=== PATIENT | male | born 1955 | race Caucasian/White ===

== ENCOUNTER 2016-02-24 11:41 | Emergency (ER) | payer SELFPAY ==
[~2016-02-24] VITALS: Ht 167.6 cm; Wt 79.4 kg
--- NOTE | 2016-02-24 12:38 | PHYS DOC ---
Past Medical History Past Medical History: No Pertinent History Past Surgical History: No Surgical History Alcohol Use: Heavy Additional Information: "I HAVE 5-6 BEERS AND A COUPLE OF SHOTS A DAY" Drug Use: Marijuana Adult General Chief Complaint Chief Complaint: ABSCESS HPI HPI Patient is a 60 year old male who presents with concern for abscess on his buttock. Patient reports pain in his left superior buttock that began Thursday without provocation. He had a fever on night, but not since then. No drainage from site, but does report significant point tenderness. No prior similar episodes. No other acute complaints. He has tried an ice pack, a hot pack, and muscle rub ointment on the site with insufficient relief. Review of Systems Review of Systems Constitutional: Denies fever or chills Eyes: Denies change in visual acuity or eye pain HENT: Denies nasal congestion or sore throat Respiratory: Denies cough or shortness of breath Cardiovascular: Denies chest pain GI: Denies abdominal pain, nausea, vomiting, bloody stools or diarrhea : Denies dysuria or hematuria Musculoskeletal: Pain, point TTP superior L buttock Integument: Denies rash or skin lesions Neurologic: Denies headache, focal weakness or sensory changes Current Medications Current Medications Current Medications Medications (Trade) Dose Ordered Sig/[place] Start Time Stop Time Status Last Admin Dose Admin Iohexol (Omnipaque 300 Mg/ml) 75 ml 1X ONCE 02/24/16 13:15 02/24/16 13:16 DC Allergies Allergies Allergies Coded Allergies Type Severity Reaction Last Updated Verified naproxen Allergy Unknown 02/24/16 Yes Physical Exam Physical Exam Constitutional: Well developed, well nourished, no acute distress, non-toxic appearance HENT: Normocephalic, atraumatic, bilateral external ears normal Eyes: EOMI, conjunctiva normal, no discharge Neck: Normal range of motion, no stridor Cardiovascular: Heart rate normal, regular rhythm, no murmur Lungs & Thorax: Bilateral breath sounds clear to auscultation Abdomen: Bowel sounds normal, soft, non-distended, no TTP Rectal: TTP at superior L buttock at top of gluteal cleft; no erythema, warmth to touch, or other skin abnormality noted. No TTP or abnormality around rectum. Skin: Warm, dry, no erythema, no rash Neurologic: Alert and oriented X 3, no gross deficits noted Current Patient Data Vital Signs Vital Signs Date Time Temp Pulse Resp B/P Pulse Ox O2 Delivery O2 Flow Rate FiO2 02/24/16 14:43 82 16 155/63 99 02/24/16 12:17 98.6 Room Air 98.6 Lab Values Laboratory Tests Test 02/24/16 12:44 White Blood Count 6.6x10^3/uL (4.0-11.0) Red Blood Count 4.72x10^6/uL (4.30-5.70) Hemoglobin 15.1g/dL (13.0-17.5) Hematocrit 44.7% (39.0-53.0) Mean Corpuscular Volume 95fL (79-100) Mean Corpuscular Hemoglobin 32pg (25-35) Mean Corpuscular Hemoglobin Concent 34g/dL (31-37) Red Cell Distribution Width 12.3% (11.5-14.5) Platelet Count 208x10^3/uL (140-400) Neutrophils (%) (Auto) 64% (31-73) Lymphocytes (%) (Auto) 25% (24-48) Monocytes (%) (Auto) 8% (0-9) Eosinophils (%) (Auto) 1% (0-3) Basophils (%) (Auto) 1% (0-3) Neutrophils # (Auto) 4.3x10^3uL (1.8-7.7) Lymphocytes # (Auto) 1.6x10^3/uL (1.0-4.8) Monocytes # (Auto) 0.6x10^3/uL (0.0-1.1) Eosinophils # (Auto) 0.1x10^3/uL (0.0-0.7) Basophils # (Auto) 0.1x10^3/uL (0.0-0.2) Sodium Level 139mmol/L (136-145) Potassium Level 4.2mmol/L (3.5-5.1) Chloride Level 102mmol/L (98-107) Carbon Dioxide Level 28mmol/L (21-32) Anion Gap 9 (6-14) Blood Urea Nitrogen 17mg/dL (8-26) Creatinine 1.0mg/dL (0.7-1.3) Estimated GFR (Cockcroft-Gault) 76.7 Glucose Level 136mg/dL (70-99) H Calcium Level 8.4mg/dL (8.5-10.1) L Laboratory Tests 02/24/16 12:44 Laboratory Tests 02/24/16 12:44 EKG EKG [] Radiology/Procedures Radiology/Procedures CT A/P: Impression: 1. No abnormal fluid collection or perirectal abscess identified Course & Med Decision Making Course & Med Decision Making Pertinent Labs and Imaging studies reviewed. (See chart for details) Patient is 60-year-old male who presents with pain and tenderness superior left buttock. Physical exam does not reveal any evidence of abscess, but given the degree of pain and tenderness along obtain CT of pelvis to rule out deeper abscess. Labs ordered. Patient declines pain medication as he has had problems with pain medications past. Labs unremarkable. No leukocytosis. CT scan without acute abnormality. Discussed results with patient. Possible muscle spasm? Discussed need for patient to follow-up with PCP. Patient discharged home with rx for muscle relaxant, instructions for follow-up, list of providers in the area, return precautions. Dragon Disclaimer Dragon Disclaimer This electronic medical record was generated, in whole or in part, using a voice recognition dictation system. Departure Departure Impression: Primary Impression: Buttock pain Disposition: HOME, SELF-CARE Condition: STABLE Referrals: NO PCP (PCP) Patient Instructions: Muscle Cramps, Muscle Strain Additional Instructions: Thank you for allowing us to provide care today in the Emergency Department. Take the provided medication as directed. Use caution when taking this medication as it can make you drowsy. Schedule a follow up appointment with a primary care doctor using the provided contact information. Return promptly to the Emergency Department if you develop any new or concerning symptoms. Scripts Cyclobenzaprine Hcl 10 Mg Rbvedg01 Mg PO TID PRN MUSCLE SPASMS #15 TAB Prov:JUAN MANUEL ROACH MD 02/24/16 JUAN MANUEL ROACH MD Feb 24, 2016 12:38
[2016-02-24 12:56] LABS: BASO # 0.1 x10^3/uL (0.0-0.2); BASO % 1 % (0-3); EOS % 1 % (0-3); HEMATOCRIT 44.7 % (39.0-53.0); HEMOGLOBIN 15.1 g/dL (13.0-17.5); LYMPH # 1.6 x10^3/uL (1.0-4.8); LYMPH % 25 % (24-48); MEAN CORPUSCULAR HEMOGLOBIN 32 pg (25-35); MEAN CORPUSCULAR HGB CONC 34 g/dL (31-37); MEAN CORPUSCULAR VOLUME 95 fL (79-100); MONO % 8 % (0-9); NEUT % 64 % (31-73); PLATELET COUNT 208 x10^3/uL (140-400); RED BLOOD COUNT 4.72 x10^6/uL (4.30-5.70); RED CELL DISTRIBUTION WIDTH 12.3 % (11.5-14.5); WHITE BLOOD COUNT 6.6 x10^3/uL (4.0-11.0)
[2016-02-24] MEDS ORDERED: IOHEXOL 300 MG/ML 100ML VIAL. IV ONE ×2 (13:00→13:15)
[2016-02-24 13:04] LABS: CALCIUM 8.4 mg/dL (8.5-10.1); GFR 76.7; POTASSIUM 4.2 mmol/L (3.5-5.1)
--- NOTE | 2016-02-24 14:12 | RAD ---
One or more of the following individualized dose reduction techniques were utilized for this examination: 1. Automated exposure control 2. Adjustment of the mA and/or kV according to patient size 3. Use of iterative reconstruction technique CT pelvis with contrast. History: Left buttocks pain, induration near rectum, evaluate for abscess CT scan of the pelvis was done using 75 mL of Omnipaque 300 contrast. Appendix is normal. Bowel pattern of the pelvis is normal. There is mild diverticulosis without diverticulitis. Bladder and prostate are unremarkable. There is no adenopathy or pelvic mass. There is no perirectal abscess identified. Bony pelvis appears unremarkable. Impression: 1. No abnormal fluid collection or perirectal abscess identified No mass or abscess or abnormal fluid collection in the buttocks.
[2016-02-24] MEDS ORDERED: CYCL10TA2 PO (14:34)
[2016-02-24 14:43] VITALS: BP 155/63
== END 2016-02-24 14:44 | disposition home or self-care (01) ==
LOC: EDSEX 11:41 → ER 11:41
DX: M53.3 Sacrococcygeal disorders, not elsewhere classified (principal); F12.10 Cannabis abuse, uncomplicated; Z88.8 Allergy status to other drugs, medicaments and biological substances
CPT/HCPCS: 36415; 74170; 80048; 85027; 99285; Q9967

== ENCOUNTER 2018-06-21 09:30 | Inpatient (IN) | payer SELFPAY ==
[~2018-06-21] VITALS: Ht 170.2 cm; Wt 74.8 kg
[~2018-06-21 09:30] MED LIST: CYCL10TA2 PO
[2018-06-21] MEDS ORDERED: ONDANSETRON ODT 4 MG TAB.RAPDIS. PO ONE (10:15)
[2018-06-21] MEDS ORDERED: HYDROcodone/APAP 5/325MG 1 TAB TABLET PO ONE (10:15)
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
[2018-06-21] MEDS: IV NORMAL SALINE 1000ML BAG 1,000 ML IV SCH ×2 (12:11→20:11)
[2018-06-21] MEDS ORDERED: ONDANSETRON PF 4 MG/2 ML VIAL. IV PRN ×2 (12:15→13:00)
[2018-06-21] MEDS ORDERED: NICOTINE POLACRILEX 2MG GUM PACKAGE of 12. BC PRN (13:00)
[2018-06-21] MEDS ORDERED: diphenhydrAMINE HCL 25 MG CAPSULE PO PRN (13:00)
[2018-06-21] MEDS ORDERED: chlordiazePOXIDE HCL 25 MG CAPSULE PO PRN (13:00)
[2018-06-21] MEDS ORDERED: oxyCODONE/APAP 10/325 1 TAB TABLET PO PRN (13:00)
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
[2018-06-21] MEDS: MULTIVIT INFUSN,ADULT 4,VIT K 10 ML, THIAMINE INJ 100 MG, FOLIC ACID INJ 1 MG in IV NOR... IV SCH (13:15)
[2018-06-21 13:40] VITALS: BP 169/65
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
[2018-06-21] MEDS: MUPIROCIN 2 % TOPICAL CREAM 30GM TUBE. TP SCH ×2 (14:00→21:12)
[2018-06-21] MEDS: LIDOCAINE (700MG/PATCH) PATCH. TD SCH (14:47)
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
[2018-06-21] MEDS: oxyCODONE/APAP 5/325 1 TAB TABLET PO PRN ×2 (17:44→21:12)
[2018-06-21 19:00] VITALS: BP 143/62
[2018-06-21] MEDS ORDERED: ASPI-612 PO (19:10)
[2018-06-21] MEDS ORDERED: PATCH REMOVAL. MC SCH (21:00)
[2018-06-21] MEDS: NICOTINE 21MG PATCH. TD PRN (22:36)
[2018-06-21 23:00] VITALS: BP 120/56
[2018-06-22] MEDS: fentaNYL PF VIAL 100 MCG/2 ML VIAL IV PRN ×2 (02:34→10:25)
[2018-06-22 03:00] VITALS: BP 141/67
[2018-06-22] MEDS: IV NORMAL SALINE 1000ML BAG 1,000 ML IV SCH (04:11)
[2018-06-22 06:41] LABS: CALCIUM 7.9 mg/dL (8.5-10.1); CREATININE 0.9 mg/dL (0.7-1.3); GFR 85.8; POTASSIUM 3.8 mmol/L (3.5-5.1); TOTAL BILIRUBIN 0.6 mg/dL (0.2-1.0)
[2018-06-22 07:00] VITALS: BP 142/71
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
[2018-06-22] MEDS: MUPIROCIN 2 % TOPICAL CREAM 30GM TUBE. TP SCH ×2 (09:00→13:43)
[2018-06-22] MEDS: MULTIVIT INFUSN,ADULT 4,VIT K 10 ML, THIAMINE INJ 100 MG, FOLIC ACID INJ 1 MG in IV NOR... IV SCH (09:00)
[2018-06-22] MEDS: LIDOCAINE (700MG/PATCH) PATCH. TD SCH (09:00)
[2018-06-22] MEDS: NICOTINE 21MG PATCH. TD PRN (09:17)
[2018-06-22] MEDS: oxyCODONE/APAP 5/325 1 TAB TABLET PO PRN (09:17)
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
[2018-06-22 11:00] VITALS: BP 140/69
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
[2018-06-22 15:00] VITALS: BP 134/68
--- NOTE | 2018-06-22 16:38 | NUR ---
Pt discharged home with self care. Discharge instructions discussed. Pt called and scheduled follow up appt with Dr. Mcintosh. Provided dressing change education to . IV removed. VSS. Pt taken via wheelchair to main entrance and was secured in vehicle with . 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 No additional needs at this time.
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
[2018-06-23] MEDS ORDERED: FOLIC ACID 1 MG TABLET. PO SCH (09:00)
[2018-06-23] MEDS ORDERED: MULTIVITAMIN with MINERAL TABLET. PO SCH (09:00)
[2018-06-23] MEDS ORDERED: THIAMINE 100 MG TABLET. PO SCH (09:00)
== END 2018-06-22 16:30 | disposition home or self-care (01) | DRG 563 ==
LOC: ER 09:30 → 4 NORTH 12:09
PROVIDERS: ADMIT Internal Medicine; ATTEND Internal Medicine
DX: S82.832A Other fracture of upper and lower end of left fibula, initial encounter for closed fracture (principal); F17.210 Nicotine dependence, cigarettes, uncomplicated; I48.91 Unspecified atrial fibrillation; M47.812 Spondylosis without myelopathy or radiculopathy, cervical region; S00.81XA Abrasion of other part of head, initial encounter; F12.90 Cannabis use, unspecified, uncomplicated; S76.192A Other specified injury of left quadriceps muscle, fascia and tendon, initial encounter; Y93.89 Activity, other specified; Y92.89 Other specified places as the place of occurrence of the external cause; Y99.8 Other external cause status; V29.88XA Motorcycle rider (driver) (passenger) injured in other specified transport accidents, initial encounter
CPT/HCPCS: 29125; 36415; 70450; 71101; 72125; 73110; 73130; 73562; 73610; 80053; 82306; J3010; J7030; Q0162; 99285-25